=== PATIENT | male | born 1980 | race Caucasian/White ===

== ENCOUNTER 2021-09-29 09:35 | Inpatient (IN) | payer OTHER ==
[~2021-09-29] VITALS: Ht 170.2 cm; Wt 70.5 kg
[2021-09-29 10:53] LABS: BASOPHILS % (AUTO) 0.4 % (0.0-2.0); EOSINOPHILS % (AUTO) 0.1 % (1.0-6.0); HEMATOCRIT 30.9 % (41-53); HEMOGLOBIN 10.4 g/dL (13.5-17.5); LYMPHOCYTES # (AUTO) 1.1 K/uL (1.0-4.8); LYMPHOCYTES % (AUTO) 15.3 % (22.0-44.0); MEAN CORPUSCULAR HEMOGLOBIN 27.4 pg (26.0-34.0); MEAN CORPUSCULAR HGB CONC 33.7 G/dL (31.0-37.0); MEAN CORPUSCULAR VOLUME 81 fL (80-100); MONOCYTES # (AUTO) 0.3 K/uL (0.1-1.0); MONOCYTES % (AUTO) 4.6 % (2.0-9.0); NEUTROPHILS # (AUTO) 5.7 K/uL (1.8-7.7); NEUTROPHILS % (AUTO) 79.6 % (40.0-70.0); PLATELET COUNT (AUTO) 332 K/uL (150-450); RED BLOOD CELL COUNT(AUTO) 3.81 MIL/uL (4.50-5.90); RED CELL DISTRIBUTION WIDTH 14.4 % (11.5-14.5)
[2021-09-29 10:55] LABS: COVID AG,FIA SOURCE NASOPHARYNGEAL
[2021-09-29 11:01] LABS: ANION GAP 6 mmol/L (8-16); CALCIUM, TOTAL 9.1 mg/dL (8.8-10.5); CARBON DIOXIDE 27 mmol/L (22-29); CHLORIDE 100 mmol/L (98-107); CREATININE 0.75 mg/dL (0.60-1.30); GLOMERULAR FILTR. RATE CALC > 60 mL/min (>60); GLUCOSE,RANDOM 103 mg/dL (70-110); POTASSIUM 4.2 mmol/L (3.5-5.1); SODIUM SERUM 133 mmol/L (136-145); UREA NITROGEN, BLOOD 10 mg/dL (7-18)
[2021-09-29 11:07] LABS: ALANINE AMINOTRANSFERASE 15 U/L (12-78); ALBUMIN 2.7 g/dL (3.4-5.0); ALKALINE PHOSPHATASE 62 U/L (46-116); ASPARTATE AMINOTRANSFERASE 18 U/L (15-37); BILIRUBIN,TOTAL 0.2 mg/dL (0.1-1.0); TOTAL PROTEIN, SERUM 9.2 g/dL (6.4-8.2)
[2021-09-29 11:52] VITALS: BP 118/70
[2021-09-29] MEDS: ONDANSETRON HCL 4 MG/2 ML VIAL IVP PRN (13:58)
[2021-09-29] MEDS ORDERED: INFLUENZA VIRUS VACCINE QVS 2021-22 (6MO+)/PF 60 MCG/0.5 ML SYRINGE IM. ONE (14:30)
[2021-09-29] MEDS ORDERED: IBUPROFEN 600 MG TABLET PO PRN (17:00)
[2021-09-29] MEDS ORDERED: ACETAMINOPHEN 325 MG TABLET PO PRN (17:00)
[2021-09-29] MEDS ORDERED: TraZODone HCL 50 MG TABLET PO PRN (17:00)
[2021-09-29] MEDS ORDERED: MAG HYDROX/AL HYDROX/SIMETH ES 30 ML SUSPENSION UDCUP PO PRN (17:00)
[2021-09-29] MEDS ORDERED: PROMETHAZINE HCL 25 MG TABLET PO PRN (17:00)
[2021-09-29] MEDS: BACLOFEN 10 MG TABLET PO PRN (17:06)
[2021-09-29] MEDS: SODIUM CHLORIDE 0.45% 1,000 ML IV SCH (17:06)
[2021-09-29 17:28] VITALS: BP 118/68
[2021-09-29 17:29] VITALS: BP 118/68
[2021-09-29 19:28] VITALS: BP 121/64
[2021-09-29 20:00] VITALS: BP 121/64
[2021-09-29] MEDS: CloNIDine HCL 0.1 MG TABLET PO PRN (20:50)
[2021-09-29] MEDS: LORazepam 1 MG TABLET PO PRN (20:50)
[2021-09-29 23:43] VITALS: BP 121/64
[2021-09-30] VITALS (7 sets, daily range): BP systolic 117–141; BP diastolic 66–76
[2021-09-30] MEDS: LORazepam 1 MG TABLET PO PRN ×2 (05:48→15:08)
[2021-09-30] MEDS: ONDANSETRON HCL 4 MG/2 ML VIAL IVP PRN ×2 (08:11→19:29)
[2021-09-30] MEDS: SODIUM CHLORIDE 0.45% 1,000 ML IV SCH ×2 (08:36→19:31)
[2021-09-30 10:42] LABS: BASOPHILS % (AUTO) 0.9 % (0.0-2.0); EOSINOPHILS % (AUTO) 0.1 % (1.0-6.0); HEMATOCRIT 37.8 % (41-53); HEMOGLOBIN 12.8 g/dL (13.5-17.5); LYMPHOCYTES # (AUTO) 1.9 K/uL (1.0-4.8); LYMPHOCYTES % (AUTO) 31.9 % (22.0-44.0); MEAN CORPUSCULAR HEMOGLOBIN 27.7 pg (26.0-34.0); MEAN CORPUSCULAR HGB CONC 33.8 G/dL (31.0-37.0); MEAN CORPUSCULAR VOLUME 82 fL (80-100); MONOCYTES # (AUTO) 0.3 K/uL (0.1-1.0); MONOCYTES % (AUTO) 4.8 % (2.0-9.0); NEUTROPHILS # (AUTO) 3.8 K/uL (1.8-7.7); NEUTROPHILS % (AUTO) 62.3 % (40.0-70.0); PLATELET COUNT (AUTO) 202 K/uL (150-450); RED CELL DISTRIBUTION WIDTH 14.4 % (11.5-14.5)
[2021-09-30 11:00] LABS: ALANINE AMINOTRANSFERASE 13 U/L (12-78); ALBUMIN 2.8 g/dL (3.4-5.0); ALKALINE PHOSPHATASE 64 U/L (46-116); ANION GAP 7 mmol/L (8-16); ASPARTATE AMINOTRANSFERASE 13 U/L (15-37); BILIRUBIN,TOTAL 0.2 mg/dL (0.1-1.0); CALCIUM, TOTAL 9.2 mg/dL (8.8-10.5); CARBON DIOXIDE 26 mmol/L (22-29); CHLORIDE 100 mmol/L (98-107); CREATININE 0.88 mg/dL (0.60-1.30); GLOMERULAR FILTR. RATE CALC > 60 mL/min (>60); GLUCOSE,RANDOM 108 mg/dL (70-110); POTASSIUM 4.7 mmol/L (3.5-5.1); SODIUM SERUM 133 mmol/L (136-145); UREA NITROGEN, BLOOD 11 mg/dL (7-18)
[2021-09-30] MEDS: DICYCLOMINE HCL 10 MG CAPSULE PO PRN ×2 (11:19→17:59)
[2021-09-30] MEDS: CloNIDine HCL 0.1 MG TABLET PO PRN (17:59)
[2021-09-30 20:56] LABS: AMPHET/METH SCREEN,URINE NEGATIVE (NEGATIVE); BARBITURATE SCREEN, URINE NEGATIVE (NEGATIVE); BENZODIAZEPINES SCREEN,URINE NEGATIVE (NEGATIVE); CANNABINOID SCREEN,URINE NEGATIVE (NEGATIVE); COCAINE SCREEN,URINE NEGATIVE (NEGATIVE); METHADONE SCREEN, URINE NEGATIVE (NEGATIVE); OPIATE SCREEN,URINE POSITIVE (NEGATIVE)
[2021-09-30 21:00] LABS: PHENCYCLIDINE SCREEN,URINE NEGATIVE (NEGATIVE)
[2021-09-30] MEDS: BACLOFEN 10 MG TABLET PO PRN (21:44)
[2021-10-01] VITALS (9 sets, daily range): BP systolic 100–145; BP diastolic 41–74
[2021-10-01] MEDS: HydrOXYzine PAMOATE 50 MG CAPSULE PO PRN ×2 (01:35→20:06)
[2021-10-01] MEDS: DICYCLOMINE HCL 10 MG CAPSULE PO PRN (01:35)
[2021-10-01] MEDS: ONDANSETRON HCL 4 MG/2 ML VIAL IVP PRN ×2 (01:37→18:25)
[2021-10-01] MEDS: SODIUM CHLORIDE 0.45% 1,000 ML IV SCH ×2 (09:59→20:06)
[2021-10-01] MEDS: LOPERAMIDE HCL 2 MG/15 ML SUSPENSION UDCUP PO PRN (20:07)
[2021-10-02 04:54] VITALS: BP 113/68
[2021-10-02] MEDS: DICYCLOMINE HCL 10 MG CAPSULE PO PRN ×2 (04:57→20:34)
[2021-10-02 08:16] VITALS: BP 151/85
[2021-10-02] MEDS: SODIUM CHLORIDE 0.45% 1,000 ML IV SCH ×2 (12:23→18:39)
[2021-10-02 16:23] VITALS: BP 138/78
[2021-10-02 19:59] VITALS: BP 118/59
[2021-10-02] MEDS: LOPERAMIDE HCL 2 MG/15 ML SUSPENSION UDCUP PO PRN (20:34)
[2021-10-03 05:20] VITALS: BP 105/65
[2021-10-03 08:18] VITALS: BP 118/61
[2021-10-03] MEDS: SODIUM CHLORIDE 0.45% 1,000 ML IV SCH (14:54)
[2021-10-03 17:29] VITALS: BP 119/74
[2021-10-03 19:48] VITALS: BP 132/60
[2021-10-04 04:16] VITALS: BP 116/66
[2021-10-04] MEDS: SODIUM CHLORIDE 0.45% 1,000 ML IV SCH (07:56)
[2021-10-04 07:57] VITALS: BP 122/75
[2021-10-04] MEDS ORDERED: ACET-3207 PO (11:38)
[2021-10-04] MEDS ORDERED: LOPE2 PO (12:07)
[2021-10-04] MEDS ORDERED: MAAL30 PO (12:08)
== END 2021-10-04 13:50 | DRG 897 ==
LOC: EMS 09:35 → 6S 11:25 → EMS 11:31
PROVIDERS: ADMIT Hospitalist; ATTEND Hospitalist
DX: F11.23 Opioid dependence with withdrawal (principal); E87.1 Hypo-osmolality and hyponatremia; E44.0 Moderate protein-calorie malnutrition; Z20.822 Contact with and (suspected) exposure to COVID-19; F17.210 Nicotine dependence, cigarettes, uncomplicated; B19.20 Unspecified viral hepatitis C without hepatic coma; Z28.21 Immunization not carried out because of patient refusal; Z68.24 Body mass index [BMI] 24.0-24.9, adult; Z71.6 Tobacco abuse counseling
CPT/HCPCS: 80053; 85025; 99285; G0480; J2405